=== PATIENT | female | born 1940 | race Native Hawaiian/Other Pacific Islander ===

== ENCOUNTER 2017-12-26 11:45 | Outpatient (CLI) | payer OTHER, MEDICARE ==
[~2017-12-26 11:45] MED LIST: CIPRO500 MG PO; DEXL60CA4 PO; DICY20TA34 PO; JANUVIA100 MG PO; LACTSYP31 PO; ONDA4TAB3 PO; TRIM800T12 PO; ZOLP10TA2 PO
== END 2017-12-26 20:06 | disposition home or self-care (01) ==
LOC: RAD 11:45
DX: J40 Bronchitis, not specified as acute or chronic (principal)